=== PATIENT | female | born 1940 | race African-American/Black ===

== ENCOUNTER 2020-03-30 06:31 | Day surgery (SDC) | payer MEDICARE, OTHER ==
[2020-03-30 06:54] LABS: HEMATOCRIT 36.3 % (36.0-47.0); HEMOGLOBIN 12.3 g/dL (12.0-15.5); MEAN CORPUSCULAR HEMOGLOBIN 32.1 pg (27.0-33.4); MEAN CORPUSCULAR HGB CONC 34.1 g/dL (32.0-36.0); MEAN CORPUSCULAR VOLUME 94 fl (80-97); PLATELET COUNT 235 10^3/uL (150-450); RED BLOOD COUNT 3.84 10^6/uL (3.72-5.28); RED CELL DISTRIBUTION WIDTH 13.6 % (11.5-14.0); WHITE BLOOD COUNT 6.4 10^3/uL (4.0-10.5)
[2020-03-30 07:13] LABS: INTERNATIONAL RATION (INR) 0.94; PROTHROMBIN TIME 12.8 SEC (11.4-15.4)
[2020-03-30 07:14] LABS: PARTIAL THROMBOPLASTIN TIME 39.7 SEC (23.5-35.8)
[2020-03-30 07:19] LABS: BLOOD UREA NITROGEN 9 mg/dL (7-20)
[2020-03-30] MEDS ORDERED: OXYCODONE HCL IR 5 MG TABLET ONE (08:13)
[2020-03-30] MEDS ORDERED: MIDAZOLAM 2 MG/2 ML INJ ONE (08:18)
[2020-03-30] MEDS ORDERED: CEFAZOLIN INJ 1 GM VIAL ONE (08:19)
[2020-03-30] MEDS ORDERED: FENTANYL CITRATE INJ/PF 100 MCG/2 ML AMPUL ONE (08:19)
[2020-03-30] MEDS ORDERED: LIDOCAINE 1% INJ-PF (10 MG/ML) 30 ML SDV ONE (08:27)
[2020-03-30] MEDS ORDERED: OXYCODONE HCL IR 5 MG TABLET PO ONE (09:00)
--- NOTE | 2020-03-30 10:36 | RADIOLOGY REPORT (SQ) ---
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 FLUORO TIME: 0.1 minutes 1 images saved to PACS. LIMITATIONS: None. PROCEDURE: After obtaining informed consent, the patient was brought to the special procedures suite and was placed supine on the fluoroscopy table. The patient was prepped and draped in the usual st erile fashion. IV conscious sedation was administered and physician direction by the registered erlin se using 1 milligrams of Versed and 50 micrograms of fentanyl. Physiologic monitoring was provided b efore, during, and after sedation. The total sedation time was 45 minutes. Documentation face to face time, the performing proceduralist, spent monitoring the patient: 45minute s. Ultrasound evaluation of potential access sites were performed. After successfully identifying a calloway nt right internal jugular vein, an appropriate percutaneous access site was selected and anesthetized with 1 percent lidocaine. The vein was accessed using a 21 gauge micropuncture needle. An 018 guid ewire was advanced centrally. A micropuncture set was advanced over the wire. The wire was used to measure appropriate catheter length and was removed. 035 wire was advanced into the IVC under fluoro scopy. An appropriate Port-A-Cath pocket site was selected on the anterior chest wall. The area was infiltrated with 1 percent lidocaine. The pocket was fashion using sharp and blunt dissection. The Bard CT and MR power injectable port hub was placed within the pocket site. The catheter tubing was tunneled from the pocket site to the vein puncture site and trimmed to the appropriate length using the wire measurement. The peel-away sheath was advanced over the wire. The catheter was advanced th rough the sheath. The sheath was peeled leaving the catheter in artial caval junction. The port was noted to flushed and aspirated well. The main puncture site and Port-A-Cath pocket site were closed using 3-0 Vicryl suture. The port was flushed with heparinized saline. The patient tolerated the pr ocedure well and left the department in satisfactory condition. Ultrasound images of the access vein and a spot film documenting final catheter position were stored on the PACS system. IMPRESSION: Successful placement of right IJ Port-A-Cath using ultrasound and fluoroscopic guidance. COMMENT: Patient medication list reviewed: Yes- Quality ID# 130: Eligible professional attests to do cumenting in the medical record they obtained, updated, or reviewed the patient's current medications . . Quality ID #76: The patient was prepped and draped using maximum sterile barrier technique including cap, mask, sterile gown, sterile gloves, a large sterile sheet, hand hygiene, and 2% Chlorhexidine fo r cutaneous antisepsis. When ultrasound is used, sterile ultrasound techniques are followed requiring sterile gel and sterile probes. Quality ID 145: Final reports for procedures using fluoroscopy that document radiation exposure marjorie greg, or exposure time and number of fluorographic images (if radiation exposure indices are not avail able) TECHNICAL DOCUMENTATION: JOB ID: [id number] 2010 [employer]- All Rights Reserved rev-07/19 Reading location - IP/workstation name: [email or web address]
[2020-03-30 13:23] VITALS: BP 147/66
== END 2020-03-30 11:50 | disposition home or self-care (01) ==
LOC: CCL 06:31
PROVIDERS: ATTEND Internal Medicine
DX: C25.0 Malignant neoplasm of head of pancreas (principal); E80.6 Other disorders of bilirubin metabolism; E86.0 Dehydration; I10 Essential (primary) hypertension; E78.5 Hyperlipidemia, unspecified; E11.9 Type 2 diabetes mellitus without complications; Z79.899 Other long term (current) drug therapy; Z79.84 Long term (current) use of oral hypoglycemic drugs; Z51.81 Encounter for therapeutic drug level monitoring
CPT/HCPCS: 36415; 84520; 82565; 85027; 85610; 85730; 36561; 76937; 77001; C1752; C1788; J2250; J0690; J3010; J3490; A9270; J1644; 82962

== ENCOUNTER → 2020-03-31 | Outpatient (CLI) | payer MEDICARE, OTHER ==
--- NOTE | 2020-04-01 10:29 | RADIOLOGY REPORT (SQ) ---
EXAM DESCRIPTION: PET CT SKULL/THIGH IMAGES COMPLETED DATE/TIME: 03/31/2020 1:34 pm REASON FOR STUDY: (C25.0)MALIGNANT NEOPLASM OF HEAD OF PANCREAS C25.0 MALIGNANT NEOPLASM OF HEAD OF PANCREAS COMPARISON: None. RADIONUCLIDE AND DOSE: 8.64 mCi F18 FDG The route of agent administration: Intravenous FASTING BLOOD SUGAR: 167 mg/dl CONTRAST TYPE AND DOSE: No CT contrast given. TECHNIQUE: Blood glucose level was verified. Above dose of FDG was injected intravenously. 2-D seg mented attenuation correction images were obtained from the base of the skull to the midthighs. Nonc ontrast CT images were obtained for attenuation correction and fusion with emission images. CT image s were performed without oral or intravenous contrast and are not sensitive for parenchymal lesions. A series of overlapping emission PET images were obtained. Images reviewed and manipulated at [facility] [employer] work station by the radiologist. Images stored on PACS. LIMITATIONS: None. FINDINGS: HEAD AND NECK: No areas of abnormal metabolic activity in the soft tissues of the head and neck. CHEST: No areas of abnormal metabolic activity in the chest. ABDOMEN AND PELVIS: Abnormal uptake throughout the pancreas most marked in the region of the pancreat ic head. SUVs range between 3.6 and 4.6 consistent with neoplasm. There are least 2 areas of increa sed metabolic activity in the liver suspicious for metastatic disease. Highest SUV is in the periphe ry of the right lobe. SUV is 3.8. PROXIMAL LOWER EXTREMITIES: No areas of abnormal metabolic activity in the soft tissues of the lower extremities. BONES: Relatively diffuse uptake within the thoracic and lumbar spine this may be related to treatmen t. No corresponding CT abnormalities. ADDITIONAL CT FINDINGS: No additional significant findings on the noncontrast CT images. OTHER: No other significant findings. IMPRESSION: Abnormal uptake throughout the pancreas as described as well as 2 lesions within the mk er suspicious for metastatic disease. Uptake in the thoracic and lumbar spine may related to therapy . TECHNICAL DOCUMENTATION: JOB ID: [id number] [employer]- All Rights Reserved Reading location - IP/workstation name: [email or web address]
== END ==
LOC: RAD 09:57
PROVIDERS: ATTEND Internal Medicine
DX: C25.0 Malignant neoplasm of head of pancreas (principal)
CPT/HCPCS: 78815; A9552